=== PATIENT | female | born 1950 | race Caucasian/White ===

== ENCOUNTER 2018-10-17 12:39 | Emergency (ER) | payer MEDICARE ==
[~2018-10-17] VITALS: Ht 160 cm; Wt 86.4 kg
[2018-10-17 12:47] VITALS: Ht 160 cm; Wt 86.4 kg
[2018-10-17] MEDS ORDERED: ISOSORBIDE MONO60 M1 PO (12:49)
[2018-10-17] MEDS ORDERED: JANUVIA100 MG PO (12:50)
[2018-10-17] MEDS ORDERED: COREG6.25 MG PO (12:50)
[2018-10-17] MEDS ORDERED: ELIQUIS5 MG PO (12:50)
[2018-10-17] MEDS ORDERED: EFFEXOR100 MG PO (12:51)
[2018-10-17] MEDS ORDERED: CARTIA XT240 MG PO (12:51)
[2018-10-17] MEDS ORDERED: KLONOPIN1 MG PO (12:52)
[2018-10-17] MEDS ORDERED: OXYCONTIN10 MG PO (12:52)
[2018-10-17] MEDS ORDERED: VESICARE10 MG PO (12:53)
[2018-10-17 13:16] LABS: BASOPHILS 0.3 % (0-2); EOSINOPHILS 0.8 % (0-7); HEMATOCRIT 45.8 % (36.0-48.0); HEMOGLOBIN 16.1 g/dL (12-16); IMMATURE GRANULOCYTES 0.7 % (0-5); LYMPHOCYTES 15.1 % (15-50); MCH 34.1 pg (26.0-34.0); MCHC 35.2 g/dL (31.0-37.0); MEAN PLATELET VOLUME 9.8 fL (7.4-10.4); MONOCYTES 9.8 % (2-11); NEUTROPHILS 73.3 % (40-80); PLATELET COUNT 164 10x3/uL (130-400); RBC 4.72 10x6/uL (4.00-5.40); RDW 13.6 % (11.5-14.5)
[2018-10-17 13:26] LABS: APTT 31.3 SECONDS (22.8-39.4); INR 1.24 (0.85-1.17); PROTIME 15.1 SECONDS (11.6-15.0)
[2018-10-17 13:33] LABS: ALBUMIN 3.4 g/dL (3.4-5.0); ALKALINE PHOSPHATASE 95 U/L (46-116); ALT (SGPT) 18 U/L (10-68); BILIRUBIN - TOTAL 0.44 mg/dL (0.2-1.3); CALC OSMOLALITY 285 mosm/kg (275-300); CALCIUM 8.7 mg/dL (8.5-10.1); CARBON DIOXIDE 27.1 mmol/L (21.0-32.0); CHLORIDE - SERUM 108 mmol/L (98-107); CREATININE - SERUM 0.9 mg/dL (0.6-1.3); GLUCOSE 100 mg/dL (74-106); POTASSIUM - SERUM 3.9 mmol/L (3.5-5.1); PROTEIN - SERUM 7.1 g/dL (6.4-8.2); SODIUM 143 mmol/L (136-145); UREA NITROGEN 14 mg/dL (7-18); eGFR NON AFRICAN AMERICAN 66 mL/min (90-120)
[2018-10-17 13:48] LABS: CKMB 0.4 U/L (0.0-3.6); CREATINE KINASE 26 UL (21-215); PRO BNP 81 pg/mL (0-125); TROPONIN-I < 0.017 ng/mL (0.000-0.060)
[2018-10-17 16:55] VITALS: BP 129/54
== END 2018-10-17 16:50 | disposition home or self-care (01) ==
LOC: D.ER 12:39
PROVIDERS: Family Medicine
DX: J44.9 Chronic obstructive pulmonary disease, unspecified (principal); F41.9 Anxiety disorder, unspecified